=== PATIENT | female | born 1975 | race Caucasian/White ===

== ENCOUNTER → 2017-12-10 | Outpatient (CLI) | payer OTHER | END | disposition home or self-care (01) | LOC: LAB 09:32 | PROVIDERS: ATTEND Preventive Medicine Preventive Medicine/Occupational Environmental Medicine | DX: Z02.1 Encounter for pre-employment examination (principal) | CPT/HCPCS: 36415; 86706; 86735; 86762; 86765; 86787 ==

== ENCOUNTER 2018-09-09 13:15 | Emergency (ER) | payer OTHER ==
[~2018-09-09] VITALS: Ht 162.6 cm; Wt 90.7 kg
[2018-09-09 13:30] VITALS: BP 165/75
[2018-09-09] MEDS ORDERED: methylPREDNISolone SOD SUCC 125 MG/2 ML VL IM ONE (14:00)
[2018-09-09] MEDS ORDERED: cefTRIAXone SOD 1,000 MG VL ONE (14:00)
[2018-09-09] MEDS ORDERED: IPRATROPIUM BROM 0.5 MG/2.5ML INH SOL NEB ONE (14:00)
[2018-09-09] MEDS ORDERED: ALBUTEROL SULF 2.5 MG/0.5ML(0.5%) NEB SOLN NEB ONE (14:00)
[2018-09-09] MEDS ORDERED: cefTRIAXone SOD 1,000 MG VL IM ONE (14:00)
== END 2018-09-09 14:41 | disposition home or self-care (01) ==
LOC: ER 13:15
DX: J20.9 Acute bronchitis, unspecified (principal); J02.9 Acute pharyngitis, unspecified
CPT/HCPCS: 71046; 94640; 96372; 99283; J0696; J2930; J7611; J7644

== ENCOUNTER 2019-04-28 07:26 | Emergency (ER) | payer OTHER ==
[~2019-04-28] VITALS: Ht 162.6 cm; Wt 90.7 kg
[2019-04-28 07:45] VITALS: BP 147/71
[2019-04-28] MEDS ORDERED: methylPREDNISolone SOD SUCC 125 MG/2 ML VL ONE (08:04)
[2019-04-28] MEDS ORDERED: EPINEPHrine HCL 1 MG/1 ML AMP SC ONE (08:15)
[2019-04-28] MEDS ORDERED: methylPREDNISolone SOD SUCC 125 MG/2 ML VL IM ONE (08:15)
== END 2019-04-28 10:15 | disposition home or self-care (01) ==
LOC: ER 07:32
DX: M79.89 Other specified soft tissue disorders (principal); T78.40XA Allergy, unspecified, initial encounter; X58.XXXA Exposure to other specified factors, initial encounter
CPT/HCPCS: 96372; 99283; J0171; J2930

== ENCOUNTER → 2019-08-03 | Outpatient (CLI) | payer OTHER | END | disposition home or self-care (01) | LOC: LAB 13:15 | PROVIDERS: ATTEND Nurse Practitioner Family | DX: Z03.818 Encounter for observation for suspected exposure to other biological agents ruled out (principal) | CPT/HCPCS: C9803; U0003 ==

== ENCOUNTER → 2020-03-21 | Outpatient (CLI) | payer OTHER | END | disposition home or self-care (01) | LOC: LAB 07:27 | PROVIDERS: ATTEND Nurse Practitioner Family | DX: U07.1 COVID-19 (principal) | CPT/HCPCS: C9803; U0003 ==

== ENCOUNTER → 2022-12-11 | Outpatient (CLI) | payer BC ==
[~2022-12-11] MED LIST: ALBUAER3 IN; AZIT-43 PO; CEPH-510 PO; CLIN-203 PO; CLIN300C70 PO; ONDA-144 PO; PERCOT PO; PRED20TA2 PO
[2022-12-11 08:42] LABS: Basophils # (auto) 0.1 10 ^3/uL (0-0.2); Basophils % (auto) 0.9 % (0.0-2.0); Eosinophils # (auto) 0.2 10 ^3/uL (0-0.8); Eosinophils % (auto) 2.2 % (0.0-7.0); Hematocrit 46.2 % (36.0-46.0); Hemoglobin 16.1 g/dL (12.2-16.2); Lymphocytes # (auto) 3.1 10 ^3/uL (0.4-5.4); Lymphocytes % (auto) 36.7 % (10.0-50.0); Mean Corpuscular Hemoglobin 32.9 pg (28.0-32.0); Mean Corpuscular Hgb Conc. 34.8 g/dL (32.0-36.0); Mean Corpuscular Volume 94.6 fL (80.0-100.0); Monocytes # (auto) 0.5 10 ^3/uL (0-1.3); Monocytes % (auto) 5.9 % (0.0-12.0); Neutrophils # (auto) 4.5 10 ^3/uL (1.6-8.6); Neutrophils % (auto) 54.3 % (37.0-80.0); Nucleated Red Blood Cells % 0.1 %; Red Blood Cells 4.88 10^6/uL (4.0-5.20); Red Cell Distribution Width 12.5 % (11.8-14.3); White Blood Cell 8.4 10^3/uL (4.4-10.8)
[2022-12-11 09:04] LABS: Urine Bacteria FEW /hpf (None Seen); Urine Blood 2+ /uL (Negative); Urine Clarity HAZY (Clear); Urine Color Yellow (Yellow); Urine Protein, UAD TRACE (Negative); Urine Urobilinogen Normal (Negative); Urine WBC 14 /hpf (0 - 5); Urine pH 5.5 (5.0-8.0)
[2022-12-11 09:22] LABS: Magnesium 2.2 mg/dL (1.6-2.6)
[2022-12-11 09:29] LABS: Albumin 3.6 g/dL (3.4-5.0); BUN/Creatinine Ratio 12.2 (10.0-20.0); Bilirubin, Total 0.5 mg/dL (0.2-1.0); Calcium 8.7 mg/dL (8.5-10.1); Free T4 (Free Thyroxine) 1.19 ng/dL (0.89-1.76); T3 Total 0.67 ng/mL (0.60-1.81); Total Protein 7.6 g/dL (6.4-8.2)
[2022-12-11 09:30] LABS: Folate (Folic Acid) 12.04 ng/mL (5.38-24)
[2022-12-12 06:07] LABS: Rubeola IgG Antibody 67.4 AU/mL (Immune >16.4); Varicella Zoster IgG Antibody <135 index (Immune >165)
[2022-12-12 11:07] LABS: Mumps IgG Antibody 9.9 AU/mL (Immune >10.9)
== END | disposition home or self-care (01) ==
LOC: LAB 08:25
PROVIDERS: ATTEND Internal Medicine
DX: Z00.00 Encounter for general adult medical examination without abnormal findings (principal)
CPT/HCPCS: 36415; 80053; 80061; 81001; 82306; 82607; 82746; 83036; 83735; 84439; 84443; 84480; 84550; 85025; 86706; 86735; 86762; 86765; 86787; 87086

== ENCOUNTER 2024-01-17 16:48 | Emergency (ER) | payer BC ==
[~2024-01-17] VITALS: Ht 162.6 cm; Wt 85.7 kg
[~2024-01-17 16:48] MED LIST changes: +CEPH500C PO; +CLIN1CAP70 PO; -CLIN300C70 PO; +GABA-1250 PO; +GABA-1308 PO; +PROM1SOL4 PO; +ZOFR4T PO
[2024-01-17] MEDS ORDERED: AZIT500T66 PO (17:08)
[2024-01-17] MEDS: methylPREDNISolone SOD SUCC 125 MG/2 ML VL IV ONE (18:03)
[2024-01-17] MEDS: KETOROLAC TROMETH 30 MG/ML 1ML VIAL IV ONE (18:06)
[2024-01-17] MEDS: cefTRIAXone 1GM/50ML D5W 50 ML IV ONE ×2 (18:08→18:09)
[2024-01-17 18:18] VITALS: BP 166/74; PULSE 90; RESP 20; TEMP 97.8; O2SAT 96
[2024-01-17 18:34] LABS: Rapid Strep A Screen-Throat Negative
== END 2024-01-17 18:36 | disposition home or self-care (01) ==
LOC: EEVIPCON 16:48 → ER 16:48
DX: J03.80 Acute tonsillitis due to other specified organisms (principal); L53.8 Other specified erythematous conditions; L04.0 Acute lymphadenitis of face, head and neck; Z79.899 Other long term (current) drug therapy; Z79.52 Long term (current) use of systemic steroids
CPT/HCPCS: 87070; 87880; 96365; 96375; 99284; J0696; J1885; J2919